=== PATIENT | male | born 1985 | race Hispanic/Latino ===

== ENCOUNTER 2017-01-05 16:23 | Emergency (ER) | payer MEDICAID, OTHER ==
[2017-01-05 16:39] VITALS: BP 141/78; TEMP 99; O2SAT 97
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
[2017-01-05 17:02] LABS: ARTERIAL BLOOD GAS HCO3 22.9 mmol/L (21-28); ARTERIAL BLOOD GAS O2 CAPACITY 19.1 mL/dl (16-24); ARTERIAL BLOOD HGB O2 SAT 96.8 % (95.0-98.0); CARBOXYHEMOGLOBIN 1.5 % (0.5-1.5); HHB 0.5 % (0-5); METHEMOGLOBIN 1.2 % (0.0-3.0)
[2017-01-05 17:25] VITALS: RESP 18
[2017-01-05 17:28] VITALS: PULSE 84
== END 2017-01-05 17:25 | disposition home or self-care (01) ==
LOC: ED 16:23
DX: J70.5 Respiratory conditions due to smoke inhalation (principal); T59.811A Toxic effect of smoke, accidental (unintentional), initial encounter; X08.8XXA Exposure to other specified smoke, fire and flames, initial encounter